=== PATIENT | male | born 1985 | race Caucasian/White ===

== ENCOUNTER 2016-11-10 20:38 | Emergency (ER) | payer OTHER ==
--- NOTE | ~2016-11-10 | CR210 ---
[facility]. [facility] A Service of [facility] & [facility] RADIOLOGY TEXT RESULTS PATIENT: BOYD NESBITT LOCATION: SED : 83 UNIT #: [id number] AGE: [address]: Mohamud Cano MD SEX: M ORDER DR: [id number] [place] [id number] E MR#: [id number] Acc #: [id number] NAME: BOYD NESBITT : 1985 SEX: M STUDY DATE/TIME: 11/10/2016 19:37 UNIT: SED ROOM: STUDY DESCRIPTION: CR Ribs Uni 2 View W PA Ch Lt Attending Physician: Mohamud Cano M.D. Ordering Physician: Mohamud Cano M.D. MEDICAL IMAGING REPORT This report is preliminary unless electronic signature is present. EXAM Left ribs 3 views HISTORY Left rib pain for 2 weeks after moving wood. FINDINGS 3 views of the left ribs demonstrate transverse fractures of the lateral fourth, fifth and sixth ribs. The fourth rib fracture is nondisplaced. There is 6 mm separation of the fifth rib fracture fragment and 5 mm displacement of the sixth rib fracture fragment. These appear recent. There is also an old healed fracture of the posterior eleventh rib. No focal infiltrates. No pneumothorax. Dictated by... Werner Nagy M.D. THIS IS AN ELECTRONICALLY VERIFIED REPORT Werner Nagy M.D. at 11/11/2016 11:38 PM DFL/radhika TD: 11/11/2016 14:46 JOB #: [id number] MEDICAL IMAGING REPORT
--- NOTE | ~2016-11-10 | CR285 ---
[facility] A Service of [facility] & [facility] RADIOLOGY TEXT RESULTS PATIENT: BOYD NESBITT LOCATION: SED : 83 UNIT #: [id number] AGE: [address]: Mohamud Cano MD SEX: M ORDER DR: [id number] [place] [id number] E MR#: [id number] Acc #: [id number] NAME: BOYD NESBITT : 1985 SEX: M STUDY DATE/TIME: 11/10/2016 20:37 UNIT: SED ROOM: STUDY DESCRIPTION: CR Wrist W Navicular Min 3 Lt Attending Physician: Mohamud Cano M.D. Ordering Physician: Mohamud Cano M.D. MEDICAL IMAGING REPORT This report is preliminary unless electronic signature is present. EXAM Left wrist, 3 views. DATE OF EXAM 11/10/2016 HISTORY Left wrist pain after a fall 2 weeks ago. FINDINGS 3 views of the left wrist demonstrate a nondisplaced transverse fracture through the distal radial metaphysis extending to the distal radioulnar joint. No fracture angulation. Small amount of adjacent callus along the fracture line and a small amount of periosteal new bone along the medial margin of the distal radial diaphysis. Mild soft tissue swelling about the wrist. No additional fracture. No dislocation. Dictated by... Werner Nagy M.D. THIS IS AN ELECTRONICALLY VERIFIED REPORT Werner Nagy M.D. at 11/11/2016 11:38 PM CHAU/concepcion TD: 11/11/2016 18:26 JOB #: [id number] MEDICAL IMAGING REPORT
[~2016-11-10 20:38] MED LIST: NO MEDICATIONS
== END 2016-11-11 06:35 | disposition home or self-care (01) ==
LOC: SED 20:38
DX: S52.502A Unspecified fracture of the lower end of left radius, initial encounter for closed fracture (principal); S22.42XA Multiple fractures of ribs, left side, initial encounter for closed fracture; F15.10 Other stimulant abuse, uncomplicated; W19.XXXA Unspecified fall, initial encounter
CPT/HCPCS: 29125; 71100; 73110; 99284

== ENCOUNTER 2016-12-15 19:49 | Emergency (ER) | payer OTHER ==
--- NOTE | ~2016-12-15 | CR72 ---
[facility] A Service of [facility] & [facility] RADIOLOGY TEXT RESULTS PATIENT: BOYD NESBITT LOCATION: [facility] : 83 UNIT #: [id number] AGE: [address]: Kofi Martin MD SEX: M ORDER DR: [id number] [facility] [address] [place], [place] [address] [id number] E MR#: [id number] Acc #: [id number] NAME: BOYD NESBITT : 1985 SEX: M STUDY DATE/TIME: 12/15/2016 19:48 UNIT: [facility] ROOM: STUDY DESCRIPTION: CR Chest Single View Portable Attending Physician: Isai Lindsey D.O. Ordering Physician: Isai Lindsey D.O. Primary Care Physician: No Primary Care Physician MEDICAL IMAGING REPORT This report is preliminary unless electronic signature is present EXAM Portable chest. HISTORY Shortness of air. Mental status decline today. Drug overdose. FINDINGS Cardiac size and pulmonary vascularity are within normal limits. Older healing fractures lateral left fifth and sixth ribs. Mild right thoracolumbar junction curve. No airspace infiltrates or effusions. Mild probable linear atelectasis or scarring in the lateral left base. IMPRESSION No acute findings. Dictated by... Werner Nagy M.D. THIS IS AN ELECTRONICALLY VERIFIED REPORT Werner Nagy M.D. at 12/15/2016 10:31 PM CHAU/concepcion TD: 12/15/2016 21:50 JOB #: [id number] MEDICAL IMAGING REPORT Page 1 of 1 COPY
== END 2016-12-16 07:30 | disposition home or self-care (01) ==
LOC: CFTX 19:49
DX: F15.129 Other stimulant abuse with intoxication, unspecified (principal); F17.200 Nicotine dependence, unspecified, uncomplicated
CPT/HCPCS: 71010; 96372; 99283; J3486

== ENCOUNTER 2017-03-27 10:26 | Emergency (ER) | payer OTHER ==
--- NOTE | ~2017-03-27 | CR281 ---
[facility] A Service of [facility] & [facility] & [facility] RADIOLOGY TEXT RESULTS PATIENT: BOYD NESBITT LOCATION: [facility] : 83 UNIT #: [id number] AGE: [address]: Bess Magallanes MD SEX: M ORDER DR: [id number] [facility] [address] [place], [place] [address] [id number] E MR#: [id number] Acc #: [id number] NAME: BOYD NESBITT : 1985 SEX: M STUDY DATE/TIME: 03/27/2017 19:59 UNIT: [facility] ROOM: STUDY DESCRIPTION: CR Wrist Min 3 View Lt Attending Physician: Bess Magallanes M.D. Ordering Physician: Bess Magallanes M.D. Primary Care Physician: Primary Care Physician No MEDICAL IMAGING REPORT This report is preliminary unless electronic signature is present EXAM Left wrist 3 views HISTORY Wrist pain after fall today. FINDINGS 3 views left wrist demonstrate old healed transverse fracture distal radial metaphysis with chronic benign periosteal new bone along the medial margin of the distal radial metaphysis secondary to the old trauma. No acute fracture. Bone alignment is satisfactory. No joint space narrowing. Dictated by... Werner Nagy M.D. THIS IS AN ELECTRONICALLY VERIFIED REPORT Werner Nagy M.D. at 03/28/2017 3:16 PM DFMorteza/keshav TD: 03/27/2017 21:18 JOB #: [id number] MEDICAL IMAGING REPORT Page 1 of 1 COPY
[2017-03-27 11:24] LABS: BLOOD UREA NITROGEN 18 mg/dL (9-23); CALCIUM SERUM 8.8 mg/dL (8.4-10.2); CARBON DIOXIDE 23 mmol/L (22-31); CHLORIDE 105 mmol/L (100-111); CREATININE SERUM 0.9 mg/dL (0.6-1.4); GLOM FILT RATE Estimated 111.8 mL/min (>60); GLUCOSE FASTING 93 mg/dL (70-110); POTASSIUM 4.2 mmol/L (3.5-5.1); SALICYLATE <4.0 mg/dL; SODIUM 137 mmol/L (135-145)
[2017-03-27 11:27] LABS: ACETAMINOPHEN <10 ug/mL; ALCOHOL BLOOD <5 mg/dL (0)
[2017-03-27 20:33] LABS: AMPHETAMINE POS (NEG); BARBITURATES NEG (NEG); BENZODIAZEPINES NEG (NEG); COCAINE NEG (NEG); MARIJUANA NEG (NEG); OPIATES POS (NEG); TRICYCLIC ANTIDEPRESSANTS NEG (NEG); U METHADONE NEG (NEG)
== END 2017-03-27 21:15 | disposition home or self-care (01) ==
LOC: CED 10:26
PROVIDERS: Emergency Medicine
DX: T43.621A Poisoning by amphetamines, accidental (unintentional), initial encounter (principal)
CPT/HCPCS: 36415; 73110; 80048; 80307; 96361; 96372; 96374; 99285; G0480; J2060; J3486